=== PATIENT | female | born 1950 | race Caucasian/White ===

== ENCOUNTER 2024-03-21 08:20 | Emergency (ER) | payer OTHER ==
[~2024-03-21] VITALS: Ht 165.1 cm; Wt 70.0 kg
[2024-03-21 08:23] VITALS: O2SAT 98
[2024-03-21] MEDS: DILTIAZEM HCL 5MG/ML 5ML VIAL IV ONE (09:09)
[2024-03-21 09:15] LABS: CHLORIDE 107 mEq/L (98-107); POTASSIUM 3.7 mEq/L (3.5-5.1); SODIUM 141 mEq/L (136-145)
[2024-03-21] MEDS ORDERED: DILTIAZEM HCL 125 MG in DEXT 5% WATER 100 ML IV PRN ×3 (09:15→10:45)
[2024-03-21 09:16] LABS: CALCIUM 9.1 mg/dL (8.7-10.4); CARBON DIOXIDE 27 mEq/L (21-32)
[2024-03-21 09:19] LABS: PROTHROMBIN TIME 10.8 sec (9.6-11.0)
[2024-03-21 09:21] LABS: CREATININE 0.8 mg/dL (0.6-1.0); GLUCOSE 109 mg/dL (70-105); UREA NITROGEN BLOOD 9 mg/dL (9-23)
[2024-03-21 09:22] LABS: BASOPHILS % 0.9 % (0.0-2.0); EOSINOPHILS % 0.4 % (0.0-5.0); HEMATOCRIT. 41.6 % (36.0-48.0); HEMOGLOBIN. 13.9 g/dL (12.0-16.0); LYMPHOCYTES % 20.9 % (20.0-50.0); MEAN CORPUSCULAR HEMOGLOBIN 31.3 pg (28.0-32.0); MEAN CORPUSCULAR HGB CONC 33.3 g/dL (31.0-37.0); MEAN CORPUSCULAR VOLUME 93.8 fL (81.0-99.0); MEAN PLATELET VOLUME 7.9 fl (7.4-10.4); MONOCYTES % 4.9 % (2.0-8.0); NEUTROPHILS % 72.9 % (40.0-76.0); PLATELET 242 x1000/uL (130-400); RED BLOOD CELL COUNT 4.43 mill/uL (4.2-5.4); RED CELL DISTRIBUTION WIDTH 14.7 % (11.6-14.6); TROPONIN I HIGH SENSITIVITY 4 ng/L (3.0-34); WHITE BLOOD COUNT 5.9 x1000/uL (4.5-11.0)
[2024-03-21] MEDS: DILTIAZEM HCL 125 MG in DEXT 5% WATER 100 ML IV ONE (10:01)
[2024-03-21] MEDS ORDERED: GUAIFENESIN 200MG/10ML SUGAR FREE UDC PO PRN (10:30)
[2024-03-21] MEDS ORDERED: DOCUSATE SODIUM 100MG CAPSULE PO PRN (10:30)
[2024-03-21] MEDS ORDERED: IPRATROPIUM/ALBUTEROL 0.5-3(2.5)MG/3ML NEB HHN PRN (10:30)
[2024-03-21] MEDS ORDERED: ACETAMINOPHEN 325MG TABLET PO PRN ×2 (10:30)
[2024-03-21] MEDS ORDERED: ONDANSETRON HCL 4MG/2ML INJ IV PRN (10:30)
[2024-03-21] MEDS: SODIUM CHLORIDE 0.9% 1,000 ML IV SCH (10:58)
[2024-03-21] MEDS: ENOXAPARIN 80MG/0.8ML SYR SUBCUT SCH (11:43)
[2024-03-21 11:54] LABS: CLARITY URINE CLEAR (CLEAR); COLOR URINE YELLOW (YELLOW); GLUCOSE URINE NEGATIVE (NEGATIVE); KETONES URINE NEGATIVE (NEGATIVE); LEUKOCYTE ESTERASE URINE NEGATIVE (NEGATIVE); NITRITE URINE NEGATIVE (NEGATIVE); OCCULT BLOOD URINE NEGATIVE (NEGATIVE); PH URINE 7.5 (4.5-8.0); PROTEIN URINE NEGATIVE (NEGATIVE); SPECIFIC GRAVITY URINE 1.007 (1.005-1.030); UROBILINOGEN URINE 0.2 E.U./dL (0.2-1.0)
[2024-03-21 12:39] LABS: TROPONIN I HIGH SENSITIVITY 6 ng/L (3.0-34)
[2024-03-21 12:51] LABS: *AMPHETAMINES SCREEN URINE NEGATIVE (NEGATIVE); *BARBITURATES SCREEN URINE NEGATIVE (NEGATIVE); *BENZODIAZEPINES SCREEN URINE NEGATIVE (NEGATIVE); *COCAINE SCREEN URINE NEGATIVE (NEGATIVE); CANNABINOID URINE SCREEN NEGATIVE (NEGATIVE); METHADONE URINE SCREEN NEGATIVE (NEGATIVE); OPIATES URINE SCREEN NEGATIVE (NEGATIVE); PHENCYCLIDINE URINE SCREEN NEGATIVE (NEGATIVE)
[2024-03-21 12:52] LABS: ECSTASY MDMA SCREEN URINE NEGATIVE (NEGATIVE)
[2024-03-21 13:57] VITALS: BP 116/59; PULSE 121; RESP 13; TEMP 36.94740; O2SAT 99
[2024-03-21] MEDS ORDERED: ATORVASTATIN CALCIUM 40MG TABLET PO SCH (21:00)
== END 2024-03-21 14:48 | disposition short-term general hospital (02) ==
LOC: ER 08:20 → EDBEDREQ 08:50 → EDBEDREQTM 09:49 → CANBEDREQ 13:02 → ER 14:48
DX: I48.91 Unspecified atrial fibrillation (principal); R00.2 Palpitations; I10 Essential (primary) hypertension
CPT/HCPCS: 99291; 96365; 71045; 96361; 96375; 80305; 80048; 83880; 85025; 85610; 84484; 36415; 93005; 81003; 96372; J3490 ×2; J1650; J7060